=== PATIENT | male | born 2000 | race African-American/Black ===

== ENCOUNTER 2022-09-27 08:30 | Outpatient (CLI) | payer OTHER ==
--- NOTE | 2022-09-27 11:04 | XRAY Report ---
PROCEDURE: Chest 2 View X-Ray INDICATIONS: SHORTNESS OF BREATH TECHNIQUE: 2 views of the chest were acquired. COMPARISON: None. FINDINGS: Surgical changes and devices: None. Lungs and pleura: No pleural effusions or pneumothorax. Lungs are clear. Mediastinum: Mediastinal contours appear normal. Heart size is normal. Bones and chest wall: No suspicious bony lesions. Overlying soft tissues appear unremarkable. IMPRESSION: No acute cardiopulmonary process. Reviewed by: Darrin Burgos MD on 09/27/2022 11:03 AM PDT Approved by: Darrin Burgos MD on 09/27/2022 11:03 AM PDT Station ID: [id number]
== END 2022-09-27 08:45 | disposition home or self-care (01) ==
LOC: DI.N 08:30
PROVIDERS: ATTEND Nurse Practitioner
DX: R06.02 Shortness of breath (principal)